=== PATIENT | male | born 1970 | race Caucasian/White ===

== ENCOUNTER 2017-06-29 08:22 | Inpatient (IN) | payer BC, OTHER ==
[~2017-06-29] VITALS: Ht 180.3 cm; Wt 87.1 kg
[2017-06-30] VITALS (7 sets, daily range): BP systolic 99–138; BP diastolic 57–89
--- NOTE | 2017-06-30 00:40 | NUR ---
INTAKE ASSESSMENT BP:99/60, HR:80, RR:16, SpO2:96%, T:98 Pt is in stable condition and is able to be admitted on the unit. Unit protocols regarding medications and vital signs every 4 hours were explained. Pt verbalized understanding. Will continue admission upon arrival on the unit.
--- NOTE | 2017-06-30 00:50 | NUR ---
NURSING NOTE Pt's UDS positive for Benzodiazepines. Pt with home medication of Ativan 1 mg for anxiety PRN. Last dose was a few days ago.
[2017-06-30] MEDS ORDERED: LORA1TAB PO (00:58)
[2017-06-30] MEDS ORDERED: METO50TA3 PO (00:58)
[2017-06-30] MEDS ORDERED: CITA20TA19 PO (00:58)
[2017-06-30] MEDS ORDERED: LISI1TAB11 PO (00:58)
[2017-06-30 01:10] LABS: *AMPHETAMINE, URINE NEGATIVE (NEGATIVE); *BARBITURATE, URINE NEGATIVE (NEGATIVE); *CANNABINOID, URINE NEGATIVE (NEGATIVE); *COCCAINE, URINE NEGATIVE (NEGATIVE); *OPIATE, URINE NEGATIVE (NEGATIVE); *PHENCYCLIDINE SCREEN,URINE NEGATIVE (NEGATIVE)
--- NOTE | 2017-06-30 01:20 | NUR ---
ADMISSION NOTE Pt arrived ambulatory from [facility] to the third floor accompanied by a DIRECTOR OPERATIONS at 0048. Pt is a 46 year old male admitted on 06/30/17 for ETOH dependency. Pt is full code with NKA. He reports a PMHx of anxiety and HTN. He denies any history of seizures. He reports having a PCP by the name of Dr. Ramirez located in [place]. He brought home medications of: 1. Metoprolol 50mg 2. Lisinopril/HCTZ 20-12.5M 3. Citalopram 20mg 4. Ativan 1 mg Medications have been reconciled. He reports he has been drinking for 28 years and reports his longest period of sobriety is 6 years from [id number]. He also reports he recently detoxed himself at home from June 21- using Librium for 4 days. He reports he was sober Wednesday morning (06/28/17) and began drinking Wednesday afternoon. He describes his current use as: 1. ETOH (beer) 9-16 (12oz) bottles for the past two days Last dose: 16 (120z) beers on 06/29/17 He describes his withdrawals symptoms as:" cold sweats, tremors, anxiety" Upon assessment, pt is alert and oriented x4, anxious and cooperative. Speech is clear and audible. Heart rate is regular, pt denies chest pain or SOB. PERRLA, breathing is even and unlabored, lung sounds clear. Abdomen is soft and non-distended, bowel sounds present. Last BM 06/29/17. Pt reports BM is regular. Pt's skin is warm, dry and intact. Noted with right hand scab related to work injury. No bleeding or drainage noted. made aware of pt's admission. Pt oriented to room and unit. Safety measures in place. Will monitor. Addendum: 06/30/17 at 0236 by NERY MEDRANO RN Pt also reports he quit drinking in August 2016 and completed a 90 day program and then relapsed again in December 2016.
[2017-06-30] MEDS ORDERED: diphenhydrAMINE 50 MG CAPSULE PO PRN (01:30)
[2017-06-30] MEDS ORDERED: LORAZEPAM 1 MG TABLET PO PRN ×2 (01:30)
[2017-06-30] MEDS ORDERED: THIAMINE HCL 200 MG/2 ML VIAL IM ONE (01:30)
[2017-06-30] MEDS ORDERED: MIRALAX 17 GM POWD.PACK PO PRN (01:30)
[2017-06-30] MEDS ORDERED: DICYCLOMINE HCL 20 MG TABLET PO PRN (01:30)
[2017-06-30] MEDS ORDERED: MAGNESIUM HYDROXIDE 30 ML LIQUID UDC PO PRN (01:30)
[2017-06-30] MEDS ORDERED: HYDROXYZINE PAMOATE 25 MG CAPSULE PO PRN (01:30)
[2017-06-30] MEDS ORDERED: ONDANSETRON 4 MG/2 ML VIAL IM PRN (01:30)
[2017-06-30] MEDS ORDERED: LOPERAMIDE HCL 2 MG CAPSULE PO PRN ×2 (01:30)
[2017-06-30] MEDS ORDERED: IBUPROFEN 400 MG TABLET PO PRN (01:30)
[2017-06-30] MEDS ORDERED: LORAZEPAM 2 MG/1 ML VIAL IM PRN (01:30)
[2017-06-30] MEDS ORDERED: ACETAMINOPHEN 325 MG TABLET PO PRN (01:30)
[2017-06-30] MEDS ORDERED: ONDANSETRON ODT 4 MG TAB.RAPDIS SL PRN (01:30)
[2017-06-30] MEDS ORDERED: MAG HYDROX/AL HYDROX/SIMETH 30 ML LIQUID UDC PO PRN (01:30)
[2017-06-30 01:54] LABS: BASOPHILS % (AUTO) 0.8 % (0.0-2.0); EOSINOPHILS # (AUTO) 0.2 K/uL (0.0-0.7); EOSINOPHILS % (AUTO) 3.9 % (0.0-7.0); HEMOGLOBIN 12.9 G/DL (14.0-18.0); LYMPHOCYTES # (AUTO) 2.3 K/UL (0.8-4.8); LYMPHOCYTES % (AUTO) 43.9 % (20.5-51.5); MEAN CORPUSCULAR HEMOGLOBIN 31.9 UUG (27.0-31.0); MEAN CORPUSCULAR HGB CONC 34 g/dL (32.0-37.0); MEAN CORPUSCULAR VOLUME 93.6 FL (82.0-92.0); MONOCYTES # (AUTO) 0.9 K/UL (0.1-1.30); MONOCYTES % (AUTO) 16.8 % (0.0-11.0); NEUTROPHILS # (AUTO) 1.8 K/UL (1.8-8.9); NEUTROPHILS % (AUTO) 34.6 % (38.5-71.5); PLATELET COUNT (AUTO) 192 K/UL (150-450); RED BLOOD CELL COUNT(AUTO) 4.06 MIL/UL (4.7-6.1); WHITE BLOOD COUNT (AUTO) 5.2 K/UL (4.0-11.2)
[2017-06-30] MEDS ORDERED: THIAMINE HCL 200 MG/2 ML VIAL ONE (02:01)
[2017-06-30 02:08] LABS: BILIRUBIN,TOTAL 0.5 mg/dL (0.2-1.0); CREATININE 0.9 mg/dL (0.6-1.3); MAGNESIUM 1.8 mg/dL (1.8-2.4); POTASSIUM 3.5 mmol/L (3.5-5.1); TOTAL PROTEIN, SERUM 7.2 g/dL (6.4-8.2)
[2017-06-30 02:19] LABS: THYROID STIMULATING HORMONE 1.647 mIU/mL (0.358-3.740)
[2017-06-30 03:52] LABS: EOSINOPHILS % (MANUAL) 3 % (0-8); LYMPHOCYTES % (MANUAL) 47 % (20-40); MONOCYTES % (MANUAL) 15 % (2-10); NEUTROPHILS % (MANUAL) 35 % (42-75)
--- NOTE | 2017-06-30 04:15 | NUR ---
CIWA DEFERRED Pt lying in bed with eyes closed noted to be asleep. Respirations 16, breathing is even and unlabored. Safety measures in place. Will continue to monitor.
--- NOTE | 2017-06-30 07:03 | NUR ---
END OF SHIFT Pt is a 46 year old male admitted on 06/30/17 for ETOH dependency. Pt is full code with NKA. He reports a PMHx of anxiety and HTN. He denies any history of seizures. He did not receive or request PRN medications. He slept a total of 5 hrs, Intake:500mL, Void:x1, BM:0, CIWA:3. Pt remains alert and oriented x4, and is compliant with care. Safety measures in place. Endorsed to AM shift.
--- NOTE | 2017-06-30 07:30 | NUR ---
START OF SHIFT NOTE: Received report from intelligence director nurse. Pt is a 46 year old male admitted on 06/30/17 for ETOH dependency. Pt is currently on prn meds. Pt is alert and oriented X4. Color good, skin warm and dry. Respirations even and unlabored. Pt resting in bed. Safety precautions observed. Call light within reach.
--- NOTE | 2017-06-30 09:00 | NUR ---
VSS CIWA 4 c/o anxiety and fine tremors.
[2017-06-30] MEDS: THIAMINE HCL 100 MG TABLET PO SCH (09:01)
[2017-06-30] MEDS: FOLIC ACID 1 MG TABLET PO SCH (09:01)
[2017-06-30] MEDS: MULTIVITAMINS,THERAPEUTIC TABLET PO SCH (09:01)
--- NOTE | 2017-06-30 11:50 | NUR ---
Pt states he feels "great." Resting in his room.
[2017-06-30] MEDS ORDERED: PATIENT MAY USE OWN MED- MD OK PO PRN ×2 (12:00→12:41)
[2017-06-30] MEDS ORDERED: hydrALAZINE HCL 50 MG TABLET PO PRN (12:15)
--- NOTE | 2017-06-30 15:12 | NUR ---
Therapist prompted client to attend group, client agreed to attend.
--- NOTE | 2017-06-30 18:25 | NUR ---
END OF SHIFT NOTE: Report given to slot shift supervisor nurse. Pt is a 46 year old male admitted on 06/30/17 for ETOH dependency. Pt is currently on prn meds. Pt is alert and oriented X4. Color good, skin warm and dry. Respirations even and unlabored. Vital signs have remained stable throughout shift. Last CIWA 2 @ 1700. Pt resting in bed. Safety precautions observed. Call light within reach.
--- NOTE | 2017-06-30 19:15 | NUR ---
START OF SHIFT Received 46 year old male admitted on 06/30/17 for ETOH dependency. Pt is full code with NKA. He reports a PMHx of anxiety and HTN. He reports using ETOH 9-16 beers for 2 days. Last dose was 16 beers on 06/29/17. Pt is not on taper but has PRN medications available. Per endorsement, he did not receive or request PRN medications. Pt is alert and oriented x4, breathing is even and unlabored. Safety measures in place. Will monitor.
[2017-06-30] MEDS: CITALOPRAM 20 MG TABLET PO SCH (20:10)
[2017-07-01] VITALS: BP 131/85
--- NOTE | 2017-07-01 | NUR ---
CIWA DEFERRED Pt lying in bed with eyes closed noted to be asleep. Breathing even and unlabored. Safety measures in place. Will monitor.
[2017-07-01 04:00] VITALS: BP 140/86
--- NOTE | 2017-07-01 04:00 | NUR ---
CIWA DEFERRED Pt lying in bed with eyes closed noted to be asleep. Breathing even and unlabored. Safety measures in place. Will monitor.
--- NOTE | 2017-07-01 07:17 | NUR ---
END OF SHIFT Pt is a 46 year old male admitted on 06/30/17 for ETOH dependency. Pt is full code with NKA. He reports a PMHx of anxiety and HTN. He remains on PRN medications only. He did not receive or request PRN medications. He slept a total of 9 hrs, Intake:2300mL, Void:x1, BM:0 CIWA: 3 prior to 2100 medication administration. He remains alert and oriented x4, compliant with care, breathing is even and unlabored. Safety measures in place. Endorsed to oncoming shift.
--- NOTE | 2017-07-01 07:18 | NUR ---
Start of Shift Notes: Received patient in his room. Alert and verbally responsive. Oriented x 4. Able to make his needs known. Respirations even and unlabored. No SOB noted. Skin warm and dry to touch. Abdomen soft and non-distended. BS (+) in all 4 quadrants. No complains of N/V/D or constipation noted. No abdominal discomfort noted. Bladder non-distended. No complains of dysuria noted. Voids independently. Ambulatory ad johnie with steady gait. Patient is a 46 year old male admitted for ETOH dependence who was placed on PRNs . Prior to admission, patient was using 9-16 beers x 2 days. Has past medical hx of anxiety and depression. Educated patient on his current plan of care for the day and his medication regimen. Encouraged oral fluid intake and encouraged group participation to learn new skills to prevent relapse. Will continue to monitor.
[2017-07-01 08:00] VITALS: BP 161/97
[2017-07-01 08:06] LABS: HEPATITIS B SURFACE AG Negative (Negative)
[2017-07-01] MEDS: THIAMINE HCL 100 MG TABLET PO SCH (08:16)
[2017-07-01] MEDS: MULTIVITAMINS,THERAPEUTIC TABLET PO SCH (08:17)
[2017-07-01] MEDS: FOLIC ACID 1 MG TABLET PO SCH (08:17)
--- NOTE | 2017-07-01 08:22 | NUR ---
Ativan 1 mg PO/Hydralazine given: CIWA 8, patient presented with anxiety, nervousness, moderate gross tremors, and sweats. BP 161/97. Pulse 96 at rest. Medicated patient with Ativan 1 mg PO per CIWA score and Hydralazine as ordered for elevated BP. Will monitor for effectiveness.
[2017-07-01] MEDS ORDERED: HCTZ PO SCH (09:00)
[2017-07-01] MEDS ORDERED: LISINOPRIL PO SCH (09:00)
[2017-07-01] MEDS ORDERED: TUBERCULIN,PURIF.PROT.DERIV. 5 TU/0.1 ML TEST ID ONE (09:00)
[2017-07-01] MEDS ORDERED: PATIENT MAY USE OWN MED- MD OK PO SCH (09:00)
--- NOTE | 2017-07-01 09:22 | NUR ---
Re-assessment: CIWA 4, less tremors, less anxiety and less sweating noted. Patient was able to take a shower. Patient verbalized "the shower helped me a relax" BP 135/85, PRN Hydralazine was effective in reducing patient's blood pressure.
[2017-07-01 12:00] VITALS: BP 143/95
[2017-07-01 16:00] VITALS: BP 154/98
--- NOTE | 2017-07-01 17:00 | NUR ---
MD Communication: Patient's CIWA 11. Patient presented with gross tremors, agitation, moderate anxiety, with sweats. Notified MD Diaz and will enter in orders. Per MD, patient will be started on a 2-day Ativan taper starting at this time.
[2017-07-01] MEDS: LORAZEPAM 1 MG TABLET PO SCH ×2 (17:11→20:39)
--- NOTE | 2017-07-01 17:13 | NUR ---
Therapist prompted client to attend daily group sessions. Client stated he would attend.
--- NOTE | 2017-07-01 17:13 | NUR ---
Ativan 2 mg PO/Metoprolol 50 mg PO given/Vistaril 25 mg PO given: CIWA 11, patient noted to be sweating, anxious, agitated with gross tremors to BUE. BP 154/98. Medicated patient with Ativan 2 mg PO, Metoprolol 50 mg PO and Vistaril 25 mg PO given as ordered. Will monitor for effectiveness.
[2017-07-01] MEDS ORDERED: METOPROLOL TARTRATE 50 MG TABLET PO ONE (17:15)
[2017-07-01] MEDS ORDERED: LORAZEPAM 1 MG TABLET PO PRN ×2 (17:15)
--- NOTE | 2017-07-01 18:13 | NUR ---
Re-assessment: Per patient, PRN Vistaril was effective in reducing anxiety. PRN Metoprolol effective in reducing patient's blood pressure. BP 139/87. CIWA 6. Ativan, Metoprolol and Vistaril were effective.
[2017-07-01] MEDS ORDERED: METOPROLOL TARTRATE 50 MG TABLET PO PRN (18:30)
--- NOTE | 2017-07-01 18:52 | NUR ---
End of Shift Notes: Patient was placed on 2-day Ativan taper to manage his withdrawal symptoms. No adverse reactions noted. VS monitored closely. Patient with dx of HTN. BP at 0800 161/97, medicated patient with Hydralazine as ordered with help after 1 hour. Metoprolol 50 mg PO given at 1713 with help due to elevated BP. Denies any chest pain or discomfort. Withdrawal symptoms were closely monitored. Initial CIWA 8, medicated patient with Ativan 1 mg PO as ordered per CIWA score with help after 1 hour. Ativan 2 mg PO given at 1713 for CIWA 11 with help. Per patient, Ativan was effective in reducing his symptoms. Last CIWA 6. Patient is compliant with care and treatment. Able to participate in group despite his withdrawal symptoms. All needs met and attended. Will continue to monitor closely.
--- NOTE | 2017-07-01 19:21 | NUR ---
Start of shift Patient is a 46 year old male admitted on 06-30-17 for ETOH dependence. Patient has a PMH of Anxiety and Hypertension.He is on a modified Ativan taper. Last CIWA 6 at 1600. Patient is a full code on a regular diet and has NKA. Safety measures in place. Bed locked and in lowest position, 2 side rails up for safety. Call light within reach. Report received from AM nurse.
[2017-07-01 20:00] VITALS: BP 147/86
[2017-07-01] MEDS: CITALOPRAM 20 MG TABLET PO SCH (20:39)
[2017-07-02] VITALS (7 sets, daily range): BP systolic 108–149; BP diastolic 57–99
--- NOTE | 2017-07-02 | NUR ---
CIWA deferred 0000 CIWA deferred for sleep
--- NOTE | 2017-07-02 04:01 | NUR ---
CIWA deferred 0400 CIWA deferred for sleep
--- NOTE | 2017-07-02 06:48 | NUR ---
End of shift Patient is a 46 year old male admitted on 06-30-17 for ETOH dependence. Patient has a PMH of Anxiety and Hypertension. He denies any mood instability, Denies SI or HI. He is on a modified Ativan taper. Patient is a full code on a regular diet and has NKA. Patient VS at 2000 BP 147/86, P 72, R 16, SPO2 99% on RA, T 98.1. CIWA 5. VS at 0000 BP 108/57, P 72, R 16, SPO2 99 % on RA, T 97.9. CIWA deferred for sleep. VS at 0400 BP 113/80, P 68, R 16, SPO2 99% on RA, T 97.7. CIWA deferred for sleep. Patient slept a total of 8 hours. Intake 1200 ml Output 2 voids. Safety measures in place. Bed locked and in lowest position, 2 side rails up for safety. Call light within reach. Report given to AM nurse.
--- NOTE | 2017-07-02 07:00 | NUR ---
Start of Shift Notes: Received patient in his room. Alert and verbally responsive. Oriented x 4. Able to make his needs known. Respirations even and unlabored. No SOB noted. Skin warm and dry to touch. Abdomen soft and non-distended. BS (+) in all 4 quadrants. No complains of N/V/D or constipation noted. No abdominal discomfort noted. Bladder non-distended. No complains of dysuria noted. Voids independently. Ambulatory ad johnie with steady gait. Patient is a 46 year old male admitted for ETOH dependence who was placed on a modified 2 day Ativan taper as ordered. Prior to admission, patient was using 9-16 beers x 2 days. Has past medical hx of anxiety and depression. Educated patient on his current plan of care for the day and his medication regimen. Encouraged oral fluid intake and encouraged group participation to learn new skills to prevent relapse. Will continue to monitor
[2017-07-02] MEDS: THIAMINE HCL 100 MG TABLET PO SCH (08:19)
[2017-07-02] MEDS: LISINOPRIL HCTZ PO SCH (08:19)
[2017-07-02] MEDS: FOLIC ACID 1 MG TABLET PO SCH (08:19)
[2017-07-02] MEDS: MULTIVITAMINS,THERAPEUTIC TABLET PO SCH (08:19)
--- NOTE | 2017-07-02 08:19 | NUR ---
Lopressor 50 mg PO given: Patient's BP 149/99, Pulse 99. CIWA 6- noted with tremors, anxiety , sweats. Denies any complains of chest pain, lightheadedness, blurred vision and/or headache. Medicated patient with Lopressor 50 mg PO as ordered. Will monitor for effectiveness.
[2017-07-02] MEDS ORDERED: LORAZEPAM 1 MG TABLET PO ONE (09:00)
--- NOTE | 2017-07-02 09:19 | NUR ---
Re-assessment: BP 138/89, VA 90. PRN Lopressor effective in reducing patient's blood pressure.
[2017-07-02] MEDS: GABAPENTIN 300 MG CAPSULE PO SCH ×2 (12:41→16:41)
--- NOTE | 2017-07-02 13:55 | NUR ---
Therapist met with client and encouraged client to attend group today. Client agreed to come to group.
[2017-07-02] MEDS ORDERED: METO50TA3 PO (15:12)
[2017-07-02] MEDS ORDERED: HYDR-3895 PO (15:12)
[2017-07-02] MEDS ORDERED: DIPH50CA37 PO (15:12)
[2017-07-02] MEDS ORDERED: GABA-534 PO (15:12)
--- NOTE | 2017-07-02 17:30 | NUR ---
Transfer of care: Care transferred to receiving nurse. All pertinent information explained and discussed.
--- NOTE | 2017-07-02 18:17 | NUR ---
END OF SHIFT Patient completed his 2-day Ativan taper to manage his withdrawal symptoms. No adverse reactions noted. VS monitored closely. Withdrawal symptoms were closely monitored. Per patient, Ativan was effective in reducing his symptoms. Last CIWA 4. Patient is compliant with care and treatment. Able to participate in group and activities despite his withdrawal symptoms. No distress noted at this time.
--- NOTE | 2017-07-02 20:00 | NUR ---
Start of Shift Notes Received 46 y/o male px. A&Ox4. Admitted 06/30/2017, for ETOH dependence who was placed on a modified 2 day Ativan taper as ordered. Prior to admission, patient was using 9-16 beers x 2 days. Px is on Full code, regular diet and has NKA. Has past medical hx of anxiety and depression. During the rounds at 2000, px has no complaints at the moment, VS are WNL. Encouraged oral fluid intake 2-3 L or as tolerated. Bed on the lowest position, siderails up x2. Call light within reach. We'll continue to monitor
[2017-07-02] MEDS: CITALOPRAM 20 MG TABLET PO SCH (21:49)
[2017-07-03] VITALS: BP 90/60
--- NOTE | 2017-07-03 | NUR ---
CIWA deferred CIWA deferred due to the px is sleeping, to assess if the px is awake per doctor's order. We'll continue to monitor.
[2017-07-03 04:00] VITALS: BP 92/65
--- NOTE | 2017-07-03 04:00 | NUR ---
CIWA deferred CIWA deferred due to the px is sleeping, to assess if the px is awake per doctor's order. We'll continue to monitor
--- NOTE | 2017-07-03 07:04 | NUR ---
End of Shift Notes: 46 y/o male px. A&Ox4. Admitted 06/30/2017, for ETOH dependence who was placed on a modified 2 day Ativan taper as ordered. Prior to admission, patient was using 9-16 beers x 2 days. Px is on Full code, regular diet and has NKA. Has past medical hx of anxiety and depression. During the shift, px has no complaints, VS are WNL. Encouraged oral fluid intake 2-3 L or as tolerated. Oral intake of 300 ml, voided 1x, no BM. Slept for 10 hrs. Bed on the lowest position, side-rails up x2. Call light within reach. We'll continue to monitor
--- NOTE | 2017-07-03 07:30 | NUR ---
START OF SHIFT Pt is a 46 yr old male, AA&Ox4. Pt was admitted on 06/30/17 for ETOH Dependence and was on 2 day Ativan taper. Medication was logan well. Received report from third shift lieutenant nurse. No PRN's were given during the night. Pt slept for 10 hrs. Last CIWA score as 2 at 1999. Pt is to be discharged today. Pt is currently in bed resting with respirations even and unlabored. No acute distress noted. Skin is intact, warm and dry to touch. No tremors seen or felt at this time. Pt denies any n/v or pain. Pt is on fall and seizure precautions. Call light is within reach. Will continue to monitor.
[2017-07-03 08:00] VITALS: BP 139/84
[2017-07-03] MEDS: FOLIC ACID 1 MG TABLET PO SCH (08:40)
[2017-07-03] MEDS: GABAPENTIN 300 MG CAPSULE PO SCH (08:40)
[2017-07-03] MEDS: MULTIVITAMINS,THERAPEUTIC TABLET PO SCH (08:40)
[2017-07-03] MEDS: THIAMINE HCL 100 MG TABLET PO SCH (08:40)
[2017-07-03] MEDS: LISINOPRIL HCTZ PO SCH (08:40)
--- NOTE | 2017-07-03 09:40 | NUR ---
DISCHARGE NOTE Pt is a 46 yr old male, AA&Ox4. Pt was admitted on 06/30/17 for ETOH Dependence and completed 2 day Ativan taper. Medication was effective. Pt was cooperative with medication regimen and plan of care. Pt was educated on discharge summary and prescriptions and was able to verbalize understanding. Pt did state of mild anxiety but stated it was more of excited to move forward. Last CIWA score was 3 at 0800. Pt was discharged on 07/03/17 at 0933 in stable condition to [facility]. Pt left the unit with all belonging, valuables and home medications.
== END 2017-07-03 09:33 | disposition other institution (70) | DRG 895 ==
LOC: SRC 06-30 00:07
PROVIDERS: ADMIT Internal Medicine; ATTEND Internal Medicine
PROC: HZ2ZZZZ Detoxification Services for Substance Abuse Treatment (ICD-10-PCS; principal; 2017-06-30)
PROC: HZ31ZZZ Individual Counseling for Substance Abuse Treatment, Behavioral (ICD-10-PCS; 2017-07-01)
PROC: HZ41ZZZ Group Counseling for Substance Abuse Treatment, Behavioral (ICD-10-PCS; 2017-07-02)
DX: F10.230 Alcohol dependence with withdrawal, uncomplicated (principal); K85.20 Alcohol induced acute pancreatitis without necrosis or infection; K70.10 Alcoholic hepatitis without ascites; E87.1 Hypo-osmolality and hyponatremia; Y90.9 Presence of alcohol in blood, level not specified; Z81.1 Family history of alcohol abuse and dependence; Z80.1 Family history of malignant neoplasm of trachea, bronchus and lung; Z82.49 Family history of ischemic heart disease and other diseases of the circulatory system; F13.90 Sedative, hypnotic, or anxiolytic use, unspecified, uncomplicated; D53.9 Nutritional anemia, unspecified; F32.9 Major depressive disorder, single episode, unspecified; I10 Essential (primary) hypertension; F41.9 Anxiety disorder, unspecified
CPT/HCPCS: 36415; 70030-TC; 80307; 80346; 83690; 83735; 84443; 85025; 86580; 86592; 86705; 86803; 87340; 87806; A4663; G0480; J3411